=== PATIENT | male | born 1970 | race Caucasian/White ===

== ENCOUNTER 2017-08-16 13:56 | Emergency (ER) | payer BC ==
[2017-08-16 15:12] VITALS: BP 155/80
--- OUTSIDE RECORDS SUMMARY | 2017-08-16 15:37 | XMS REPORT ---
:1970 External Reference #:[id number] Author Organization [facility] 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 Active Onset: 12/21/2011 Benign essential hypertension Leif Rascon M.D. Active Onset: 12/21/2011 Mixed hyperlipidemia Leif Rascon M.D. Active Onset: 12/21/2011 Malaise and fatigue Leif Rascon M.D. Active Onset: 12/21/2011 Tobacco user Leif Rascon M.D. Active Onset: 12/21/2011 Morbid obesity DENITA Forde Active Onset: 01/14/2013 Osteoarthritis Leif Rascon M.D. Active Onset: 01/14/2013 Peptic reflux disease Leif Rascon M.D. Active Onset: 01/14/2013 Type II diabetes mellitus uncontrolled Leif Rascon M.D. Active Onset: 12/12/2013 Chronic obstructive lung disease Leif Rascon M.D. Active Onset: 12/29/2013 Allergic rhinitis Leif Rascon M.D. 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 Family History Date Family Member(s) Problem(s) Comments Father due to At age 64 () Father Brain cancer Father due to Brain cancer () Father Lung Cancer Father Diabetes Father Heart Attack several Mother Fibromyalgia Mother 72 Children 3 Siblings 3 Social History Type Date Description Comments Marital Status Legal Status: ETOH Use Occasionally consumes alcohol Smoking Patient is a former smoker 12/13/16----BUT ACTUALLY RESTARTED, AND IS DOWN TO APPROX 6 CIG A DAY Daily Caffeine Consumes on average 2 sodas per day Daily Caffeine Consumes on average 1 cup of regular coffee per day Allergies, Adverse Reactions, Alerts Date Description Reaction Status Severity Comments 12/19/2011 NKDA active Medications Medication Date Status Form Strength Qnty SIG Indications Ordering Provider Bacitracin-Neomyc 07/22/ Active Ointment 400-5-5000 45gm Apply To J34.81 [facility] in-Polymyxin 2016 Nasal Leif Golden Lesion M.DTeri tid Cephalexin 07/22/ Active Tablets 500mg 30tab tab one J34.81 Abiodun, 2016 s by mouth Leif Golden, three M.D. times a day Chantix 07/06/ Active Tablets 1mg 60tab 1 by F17.210 Abiodun, 2016 s mouth Leif Golden, twice a M.D. day Alprazolam 07/06/ Active Tablets 0.25mg 30tab one tab q G47.00 Abiodun, 2017 s hs Leif Golden M.D. Sumatriptan 07/06/ Active Tablets 100mg 9tabs take one G43.119 Abiodun, Succinate 2016 tablet by Leif Golden mouth M.DTeri every day as needed Clopidogrel 08/02/ Active Tablets 75mg 90tab 1 by I25.10 [facility], Bisulfate 2013 s mouth Leif Golden, every day M.D. Glucophage XR 04/27/ Active Tablets ER 500mg 90tab take one E11.9 Abiodun , 2013 24HR s tablet by Leif Golden, mouth M.D. every day Toprol XL 12/18/ Active Tablets ER 100mg 90tab 1 by I10 Abiodun, 2011 24HR s mouth Ahmafroylan M., every day M.D. Lotrel 12/18/ Active Capsules 10-40mg 90cap 1 by I10 Abiodun, 2011 s mouth Leif M., every day M.D. Lipitor 12/18/ Active Tablets 40mg 90tab 1 by E78.2 Abiodun, 2011 s mouth Ahmafroylan M., every day M.D. Aspirin 12/18/ Active Tablets 325mg 1 by I10 Abiodun, 2011 mouth Maycolmaforylan M., every day M.D. Benzonatate 04/14/ Hx Capsules 200mg 60cap tab one R05 Abiodun, 2017 - s by mouth Leif Golden, 04/20/ three M.D. 2017 times a day Gentamicin 10/08/ Hx Solution 0.3% 10cc 2 drops H10.9 Abiodun, Sulfate 2017 - both eyes Ahdemar Golden, 10/13/ three M.D. 2017 times a day for 5-7 days Nerve Conduction 01/10/ Hx r/O CTS , 369.9 [facility], Study B/L Hands 2014 - numbness Ahdemar Golden, 01/22/ M.D. 2015 Chantix 01/10/ Hx Tablets 1mg 60tab 1 by 305.1 Abiodun, 2014 - s mouth Leif Golden, 04/11/ twice a M.D. 2014 day Cyclobenzaprine 08/02/ Hx Tablets 5mg 120ta take 1-2 M54.5 Anand, STERLING 2013 - bs tablets Kaylan, 10/08/ by mouth RECRUITMENT MANAGER 2016 every 8 hours as needed for pain M54.2 Tramadol HCL 08/02/2014 - Hx Tablets 50mg 50tabs 1 by mouth M54.5 Anand , 10/08/2016 three times Kaylan, RECRUITMENT MANAGER a day as needed for pain M54.2 Terbinafine HCL 08/02/2014 - Hx Tablets 250mg 42tabs take 1 681.02 Anand 12/20/2014 tablet by Kaylan, mouth RECRUITMENT MANAGER once daily for 6 weeks Contour Next Ez 03/07/2014 - Hx 100units fs q ac E11.65 Abiodun, Ahmad Glucometer 10/08/2016 and aurelio Golden M.D. Strips prn Lancets 03/07/2014 - Hx 1Box fs q ac E11.65 Abiodun, Ahmad 10/08/2016 and aurelio Golden M.D. Metformin HCL 02/27/2014 - Hx Tablets ER 500mg 30tabs 1 by 250.02 Abiodun , Ahmad ER 04/27/2014 24HR mouth Shelley Golden every day Prednisone 12/29/2013 - Hx Tablets 20mg 24tabs 3 tab by 724.2 Abiodun, Ahmad 12/29/2013 mouth Shelley Golden every day for 4 days 846.0 Cephalexin 12/12/2013 - Hx Capsules 500mg 30caps 1 by mouth 682.0 Abiodun , 12/22/2013 three Leif Golden, times a M.DTeri day Gentamicin 11/30/2013 - Hx Ointment 0.3% 3.500gm apply 1/2 372.00 Abiodun , Sulfate 12/07/2013 inch tid Leif Golden, to R eye MSaira x7 days Levofloxacin 11/21/2013 - Hx Tablets 500mg 10tabs 1 po qd 466.0 Abiodun, 12/01/2013 Leif Golden M.D. 461.9 Prednisone 11/21/2013 - Hx Tablets 20mg 20tabs 2 tab by mouth daily 4 466.0 Abiodun, 12/05/2013 days, 30 Ahmad [id number] Shelley Golden Mucinex 11/21/2013 - Hx Tablets 1200mg 30tabs 1 po bid 466.0 Abiodun, Maximum 11/25/2013 ER 12HR Leif Golden M.D. Proair HFA 11/21/2013 - Hx Aerosol 108(90 2units 1-2 puffs q4-6 hours R06.02 Abiodun, 10/08/2016 Base) prn for sob Leif mortensen/leilani Miller M.D. J44.9 Betamethasone 11/21/2013 - Hx Cream 0.05% 45gm apply to L40.9 Abiodun, Dipropionate 10/08/2016 affected Leif Golden, areas bid Jl.Jamia L03.818 Azithromycin 04/15/2013 - Hx Tablets 250mg 1Pack 2 po today 466.0 Abiodun , 04/20/2013 then 1 po Leif Golden, next 4 days M.D. Methylprednisolone 04/15/2013 - Hx Tablets 4mg 1Pack take as 466.0 Abiodun, Dose Pack 04/21/2013 directed Leif Golden M.D. Benzonatate 04/15/2013 - Hx Capsules 100mg 30caps 1 capsule 466.0 Abiodun , 11/12/2013 po tid prn Leif Golden for cough Shelley 786.2 Chantix 02/02/2013 - Hx Tablets 1mg 60tabs take one 305.1 AbiodunLeif adams 03/14/2014 tablet by Shelley Golden mouth twice a day Indocin 01/14/2013 - Hx Suppository 50mg 90units 1 by mouth 729.4 AbiodunLeif pan 11/12/2013 three times a M.Shelley day as needed 719.47 Chantix Starting 11/24/2012 - Hx Tablets 0.5mg X 1tabs every day 305.1 [facility], [facility] 02/02/2013 11 & Leif Golden, 1 mg X 42 M.D. Chantix Starting 12/19/2011 - Hx Tablets 0.5mg X 1tabs every day [facility] , [facility] 11/24/2012 11 & Leif Golden, 1 mg X M.D. Protonix 12/19/2011 - Hx Tablets DR 40mg 30tabs 1 by Abiodun, 11/12/2013 mouth Leif Golden, every day M.DTeri Plavix 12/19/2011 - Hx Tablets 75mg 30tabs 1 by Abiodun, 11/12/2013 mouth Leif Golden, every day M.D. Isosorbide 12/19/2011 - Hx Tablets ER 30mg 1 every [facility], Mononitrate ER 11/12/2013 24HR day Leif Golden M.D. Medications Administered in Office Medication Date Status Form Strength Qnty SIG Indications Ordering Provider Injection Administered Injection Juan Ramon Rascon 10MG 004 Leif Golden M.D. Vital Signs Date Vital Result Comment 07/22/2017 BP Systolic 160 mmHg BP Diastolic 90 mmHg Height 69 inches 5'9" Weight 266.00 lb BMI (Body Mass Index) 39.3 kg/m2 Heart Rate 64 /min Respiratory Rate 16 /min 07/06/2017 BP Systolic 144 mmHg BP Diastolic 82 mmHg Height 69 inches 5'9" Weight 264.00 lb BMI (Body Mass Index) 39.0 kg/m2 Heart Rate 53 /min Respiratory Rate 18 /min 04/20/2017 BP Systolic 128 mmHg BP Diastolic 72 mmHg Height 69 inches 5'9" Weight 263.00 lb BMI (Body Mass Index) 38.8 kg/m2 Heart Rate 74 /min Body Temperature 98.3 F Respiratory Rate 16 /min 04/14/2017 BP Systolic 134 mmHg BP Diastolic 88 mmHg Height 69 inches 5'9" Weight 265.00 lb BMI (Body Mass Index) 39.1 kg/m2 Heart Rate 87 /min Body Temperature 99.1 F Respiratory Rate 18 /min 10/08/2016 BP Systolic 158 mmHg BP Diastolic 90 mmHg Height 69 inches 5'9" Weight 260.00 lb BMI (Body Mass Index) 38.4 kg/m2 Heart Rate 99 /min Respiratory Rate 18 /min 01/10/2015 BP Systolic 144 mmHg BP Diastolic 89 mmHg Height 69 inches 5'9" Weight 258.00 lb BMI (Body Mass Index) 38.1 kg/m2 Heart Rate 75 /min Respiratory Rate 16 /min 08/02/2014 BP Systolic 140 mmHg BP Diastolic 80 mmHg Height 69 inches 5'9" Weight 242.00 lb BMI (Body Mass Index) 35.7 kg/m2 Heart Rate 68 /min 04/06/2014 BP Systolic 121 mmHg BP Diastolic 75 mmHg Height 69 inches 5'9" Weight 275.00 lb BMI (Body Mass Index) 40.6 kg/m2 Heart Rate 51 /min Respiratory Rate 20 /min 03/30/2014 BP Systolic 113 mmHg BP Diastolic 72 mmHg Height 69 inches 5'9" Weight 276.00 lb BMI (Body Mass Index) 40.8 kg/m2 Heart Rate 56 /min Respiratory Rate 20 /min 03/07/2014 BP Systolic 135 mmHg BP Diastolic 97 mmHg Height 69 inches 5'9" Weight 287.00 lb BMI (Body Mass Index) 42.4 kg/m2 Heart Rate 59 /min Respiratory Rate 18 /min 02/27/2014 BP Systolic 129 mmHg BP Diastolic 84 mmHg Height 69 inches 5'9" Weight 286.00 lb BMI (Body Mass Index) 42.2 kg/m2 Heart Rate 68 /min Respiratory Rate 20 /min 12/29/2013 BP Systolic 144 mmHg BP Diastolic 95 mmHg Height 69 inches 5'9" Weight 288.00 lb BMI (Body Mass Index) 42.5 kg/m2 Heart Rate 63 /min Respiratory Rate 18 /min 12/12/2013 BP Systolic 157 mmHg BP Diastolic 110 mmHg Height 69 inches 5'9" Weight 281.00 lb BMI (Body Mass Index) 41.5 kg/m2 Heart Rate 64 /min Body Temperature 96.9 F Respiratory Rate 18 /min 11/30/2013 BP Systolic 138 mmHg BP Diastolic 88 mmHg Height 69 inches 5'9" Weight 291.00 lb BMI (Body Mass Index) 43.0 kg/m2 Heart Rate 81 /min Body Temperature 97.9 F Respiratory Rate 20 /min 11/21/2013 BP Systolic 158 mmHg BP Diastolic 94 mmHg BP Systolic Recheck 154 mmHg Manual Recheck BP Diastolic Recheck 92 mmHg Manual Recheck Height 69 inches 5'9" Weight 291.00 lb BMI (Body Mass Index) 43.0 kg/m2 Heart Rate 84 /min Body Temperature 98.0 F Respiratory Rate 22 /min 04/15/2013 BP Systolic 122 mmHg BP Diastolic 88 mmHg Height 69 inches 5'9" Weight 276.00 lb BMI (Body Mass Index) 40.8 kg/m2 Heart Rate 81 /min Body Temperature 97.6 F Respiratory Rate 20 /min 01/14/2013 BP Systolic 148 mmHg BP Diastolic 94 mmHg Height 69 inches 5'9" Weight 283.00 lb BMI (Body Mass Index) 41.8 kg/m2 Heart Rate 75 /min Respiratory Rate 24 /min 11/24/2012 BP Systolic 130 mmHg BP Diastolic 94 mmHg Height 69 inches 5'9" Weight 276.00 lb BMI (Body Mass Index) 40.8 kg/m2 Heart Rate 68 /min Body Temperature 98.2 F Respiratory Rate 18 /min Results Test Date Test Result H/L Range Note Laboratory test 10/08/2016 Hemoglobin A1c (Glyco <pending> finding HGB) TSH (Thyroid Stim Horm) <pending> CBC W/Automated Diff 01/10/2015 White Blood Count 6.8 K/uL 3.4-10.5 Red Blood Count 5.47 M/uL 4.20-5.80 Hemoglobin 16.1 gm/dL 12.8-17.0 Hematocrit 48.0 % 38.0-48.0 Mean Cell Volume 87.8 fl 80.0-96.0 Mean Corpuscular HGB 29.4 pg 27.0-33.0 Mean Corpuscular HGB Conc 33.5 g/dL 31.7-36.0 Platelet Count 308 K/uL 150-400 Red Cell Distri Width SD 45.9 fl 36-51 Red Cell Distri Width %CV 14.4 % 11.6-15.8 Mean Platelet Volume 10.5 fL 6.6-10.6 Neut% 47.4 % 33.0-73.0 Lymph % 43.3 % 17.0-56.0 Jerauld % 7.3 % 0.0-10.0 Eo% 1.6 % 0.0-5.0 Bas% 0.4 % 0.1-1.0 Neut# 3.24 K/uL 1.8-7.0 Lymph # 2.96 K/uL 1.8-7.0 Jerauld # 0.50 K/uL 0.0-0.8 Eos # 0.11 K/uL 0.0-0.5 Baso # 0.03 K/uL Low 0.1-0.2 Microalbumin,Random Urine 01/10/2015 Microalbumin,Urine 6.1 mg/L < 20.0 Glycohemoglobin A1c 01/10/2015 Glycohemoglobin (A1c) 6.2 % 4.2-6.3 1 eAG 131 mg/dL Laboratory test finding 01/10/2015 Prostate Specific Antigen 0.38 ng/mL 2 TSH Reflex FT4 and/or FT3 0.56 uIU/mL 0.36-3.74 3 Uric Acid 8.5 mg/dL High 3.5-7.2 Vitamin D,25-Hydroxy 32.3 ng/mL 30.0-100.0 4 LDL Cholesterol Profile 01/10/2015 Cholesterol 210 mg/dL < 200 5 Triglycerides 309 mg/dL < 150 6 HDL Cholesterol 29 mg/dL > 40 7 LDL-Cholesterol 119 mg/dL < 100 8 Laboratory test finding 01/10/2015 C-Reactive Protein,Cardiac 4.78 mg/L & lt;3.0 Sedimentation Rate 2 mm/hr 0-15 Comprehensive Metabolic Panel 01/10/2015 Glucose 112 mg/dL High 74-106 BUN 22 mg/dL High 7-18 Creatinine 1.1 mg/dL 0.6-1.3 Glom Filtration Rate, Estimate >60 mL/min >60 If >60 mL/min >60 9 BUN/Creat 20.0 ratio Sodium 136 mmol/L 136-145 Potassium 5.4 mmol/L High 3.5-5.1 10 Chloride 103 mmol/L 98-107 Carbon Dioxide 24 mmol/L 21-32 Anion Gap 9 mEq/L 8-16 Calcium 9.5 mg/dL 8.5-10.1 Total Protein 8.0 g/dL 6.4-8.2 Albumin 4.6 g/dL 3.4-5.0 Globulin 3.4 g/dL 1.9-4.3 Alb/Glob 1.4 ratio Bilirubin,Total 0.3 mg/dL 0.2-1.0 Sgot/Ast 24 U/L 15-37 SGPT/Alt 40 U/L 12-78 Alkaline Phosphatase 94 U/L 45-117 CBC W/Automated Diff 08/02/2014 White Blood Count 7.3 K/uL 3.4-10.5 Red Blood Count 5.26 M/uL 4.20-5.80 Hemoglobin 15.6 gm/dL 12.8-17.0 Hematocrit 46.4 % 38.0-48.0 Mean Cell Volume 88.2 fl 80.0-96.0 Mean Corpuscular HGB 29.7 pg 27.0-33.0 Mean Corpuscular HGB Conc 33.6 g/dL 31.7-36.0 Platelet Count 303 K/uL 150-400 Red Cell Distri Width SD 45.0 fl 36-51 Red Cell Distri Width %CV 14.0 % 11.6-15.8 Mean Platelet Volume 10.3 fL 6.6-10.6 Neut% 56.2 % 33.0-73.0 Lymph % 33.5 % 17.0-56.0 Jerauld % 8.3 % 0.0-10.0 Eo% 1.7 % 0.0-5.0 Bas% 0.3 % 0.1-1.0 Neut# 4.09 K/uL 1.8-7.0 Lymph # 2.43 K/uL 1.2-4.0 Jerauld # 0.60 K/uL 0.0-0.6 Eos # 0.12 K/uL 0.0-0.5 Baso # 0.02 K/uL Low 0.1-0.2 Comprehensive Metabolic Panel 08/02/2014 Glucose 102 mg/dL 74-106 BUN 19 mg/dL High 7-18 Creatinine 0.9 mg/dL 0.6-1.3 Glom Filtration Rate, Estimate >60 mL/min >60 If >60 mL/min >60 11 BUN/Creat 21.1 ratio Sodium 138 mmol/L 136-145 Potassium 4.5 mmol/L 3.5-5.1 Chloride 107 mmol/L 98-107 Carbon Dioxide 23 mmol/L 21-32 Anion Gap 13 mEq/L 8-16 Calcium 9.8 mg/dL 8.5-10.1 Total Protein 7.7 g/dL 6.4-8.2 Albumin 4.4 g/dL 3.4-5.0 Globulin 3.3 g/dL 1.9-4.3 Alb/Glob 1.3 ratio Bilirubin,Total 0.4 mg/dL 0.2-1.0 Sgot/Ast 21 U/L 15-37 SGPT/Alt 39 U/L 12-78 Alkaline Phosphatase 97 U/L 45-117 LDL Cholesterol Profile 08/02/2014 Cholesterol 134 mg/dL < 200 12 Triglycerides 106 mg/dL < 150 13 HDL Cholesterol 34 mg/dL > 40 14 LDL-Cholesterol 79 mg/dL < 100 15 Glycohemoglobin A1c 08/02/2014 Glycohemoglobin (A1c) 5.8 % 4.2-6.3 16 eAG 120 mg/dL Basic Metabolic Panel 03/07/2014 Glucose 200 mg/dL High 76-115 BUN 14 mg/dL 5-23 Creatinine 0.9 mg/dL 0.5-1.4 Glom Filtration Rate, Estimate >60 mL/min >60 If >60 mL/min >60 17 BUN/Creat 15.5 ratio Sodium 138 mmol/L 136-145 Potassium 4.2 mmol/L 3.5-5.1 Chloride 106 mmol/L 98-107 Carbon Dioxide 23 mEq/L 18-29 Anion Gap 13 mEq/L 8-16 Calcium 9.8 mg/dL 8.5-10.1 Comprehensive Metabolic Panel 03/07/2014 Glucose 200 mg/dL High 76-115 BUN 14 mg/dL 5-23 Creatinine 0.9 mg/dL 0.5-1.4 Glom Filtration Rate, Estimate >60 mL/min >60 If >60 mL/min >60 18 BUN/Creat 15.5 ratio Sodium 138 mmol/L 136-145 Potassium 4.2 mmol/L 3.5-5.1 Chloride 106 mmol/L 98-107 Carbon Dioxide 23 mEq/L 18-29 Anion Gap 13 mEq/L 8-16 Calcium 9.8 mg/dL 8.5-10.1 Total Protein 7.7 g/dL 6.3-8.0 Albumin 4.3 g/dL 3.5-5.0 Globulin 3.4 g/dL 1.9-4.3 Alb/Glob 1.3 ratio Bilirubin,Total 0.3 mg/dL 0.2-1.2 Sgot/Ast 47 U/L High 16-40 SGPT/Alt 64 U/L 30-65 Alkaline Phosphatase 110 U/L 50-136 Microalbumin,Random Urine 02/27/2014 Microalbumin,Urine 19.3 mg/L High 0.0 -18.5 CBC W/Automated Diff 12/29/2013 White Blood Count 7.7 K/uL 3.4-10.5 Red Blood Count 5.23 M/uL 4.20-5.80 Hemoglobin 15.1 gm/dL 12.8-17.0 Hematocrit 44.2 % 38.0-48.0 Mean Cell Volume 84.5 fl 80.0-96.0 Mean Corpuscular HGB 28.9 pg 27.0-33.0 Mean Corpuscular HGB Conc 34.2 g/dL 31.7-36.0 Platelet Count 306 K/uL 150-400 Red Cell Distri Width SD 41.9 fl 36-51 Red Cell Distri Width %CV 13.6 % 11.6-15.8 Mean Platelet Volume 10.7 fL High 6.6-10.6 Neut% 53.7 % 33.0-73.0 Lymph % 38.0 % 17.0-56.0 Jerauld % 6.7 % 0.0-10.0 Eo% 1.3 % 0.0-5.0 Bas% 0.3 % 0.1-1.0 Neut# 4.15 K/uL 1.8-7.0 Lymph # 2.94 K/uL 1.2-4.0 Jerauld # 0.52 K/uL 0.0-0.6 Eos # 0.10 K/uL 0.0-0.5 Baso # 0.02 K/uL Low 0.1-0.2 Comprehensive Metabolic Panel 12/29/2013 Glucose 185 mg/dL High 76-115 BUN 14 mg/dL 5-23 Creatinine 0.8 mg/dL 0.5-1.4 Glom Filtration Rate, Estimate >60 mL/min >60 If >60 mL/min >60 19 BUN/Creat 17.5 ratio Sodium 137 mmol/L 136-145 Potassium 4.4 mmol/L 3.5-5.1 Chloride 105 mmol/L 98-107 Carbon Dioxide 22 mEq/L 18-29 Anion Gap 14 mEq/L 8-16 Calcium 9.3 mg/dL 8.5-10.1 Total Protein 7.6 g/dL 6.3-8.0 Albumin 4.2 g/dL 3.5-5.0 Globulin 3.4 g/dL 1.9-4.3 Alb/Glob 1.2 ratio Bilirubin,Total 0.3 mg/dL 0.2-1.2 Sgot/Ast 37 U/L 16-40 SGPT/Alt 68 U/L High 30-65 Alkaline Phosphatase 111 U/L 50-136 Laboratory test 12/29/2013 C-Reactive 7.60 mg/L High 0.00-3.00 20 finding Protein,Cardiac Sedimentation Rate 19 mm/hr High 0-15 Glycohemoglobin A1c 12/29/2013 Glycohemoglobin (A1c) 10.0 % High 4.8-6.0 21 eAG 240 mg/dL Laboratory test finding 12/29/2013 TSH Reflex FT4 and/or 1.46 uIU/mL 0.49 -4.67 22 FT3 Prostate Specific Antigen 0.46 ng/mL 0.00-4.00 23 LDL Cholesterol Profile 12/29/2013 Cholesterol 226 mg/dL High 120-200 Triglycerides 249 mg/dL High 16-231 HDL Cholesterol 32 mg/dL 29-83 LDL-Cholesterol 144 mg/dL 62-185 Glycohemoglobin A1c 11/24/2012 Glycohemoglobin (A1c) 6.4 % High 4.8-6.0 24 eAG 137 mg/dL Laboratory test finding 11/24/2012 NT-proBNP 17.0 pg/mL <325.0 CBC W/Automated Diff 11/24/2012 White Blood Count 7.0 K/uL 3.4-10.5 Red Blood Count 6.03 M/uL High 4.20-5.80 Hemoglobin 17.5 gm/dL High 12.8-17.0 Hematocrit 52.5 % High 38.0-48.0 Mean Cell Volume 87.1 fl 80.0-96.0 Mean Corpuscular HGB 29.0 pg 27.0-33.0 Mean Corpuscular HGB Conc 33.3 g/dL 31.7-36.0 Platelet Count 299 K/uL 150-400 Red Cell Distri Width SD 44.6 fl 36-51 Red Cell Distri Width %CV 14.1 % 11.6-15.8 Mean Platelet Volume 10.3 fL 6.6-10.6 Neut% 57.4 % 33.0-73.0 Lymph % 32.9 % 17.0-56.0 Jerauld % 7.1 % 0.0-10.0 Eo% 2.3 % 0.0-5.0 Bas% 0.3 % 0.1-1.0 Neut# 4.04 K/uL 1.8-7.0 Lymph # 2.31 K/uL 1.2-4.0 Jerauld # 0.50 K/uL 0.0-0.6 Eos # 0.16 K/uL 0.0-0.5 Baso # 0.02 K/uL Low 0.1-0.2 Laboratory test finding 11/24/2012 Thyroid Stim Hormone 0.83 uIU/mL 0.49- 4.67 LDL Cholesterol Profile 11/24/2012 Cholesterol 232 mg/dL High 120-200 Triglycerides 194 mg/dL 16-231 HDL Cholesterol 30 mg/dL 29-83 LDL-Cholesterol 163 mg/dL 62-185 Comprehensive Metabolic Panel 11/24/2012 Glucose 116 mg/dL High 76-115 BUN 19 mg/dL 5-23 Creatinine 1.0 mg/dL 0.5-1.4 Glom Filtration Rate, Estimate >60 mL/min >60 If >60 mL/min >60 25 BUN/Creat 19.0 ratio Sodium 139 mmol/L 136-145 Potassium 4.7 mmol/L 3.5-5.1 Chloride 106 mmol/L 98-107 Carbon Dioxide 23 mEq/L 18-29 Anion Gap 15 mEq/L 8-16 Calcium 10.1 mg/dL 8.5-10.1 Total Protein 8.2 g/dL High 6.3-8.0 Albumin 4.8 g/dL 3.5-5.0 Globulin 3.4 g/dL 1.9-4.3 Alb/Glob 1.4 ratio Bilirubin,Total 0.3 mg/dL 0.2-1.2 Sgot/Ast 30 U/L 16-40 SGPT/Alt 66 U/L High 30-65 Alkaline Phosphatase 113 U/L 50-136 Laboratory test finding 11/24/2012 CK 44 U/L 26-190 Troponin-I < 0.02 ng/mL 0.00-0.50 26 C-Reactive Protein,Cardiac 2.93 mg/L 0.00-3.00 27 1 Elevated levels of HbA1c suggest the need for more aggressive treatment of glycemia. The [place] [employer] recommends that a primary goal of therapy should be a HbA1c of <7% and that physicians should re-evaluate the treatment regimen in patients with HbA1c values consistently >8%. 2 THIS ASSAY IS NOT INTENDED A CANCER SCREENING TEST The concentration of PSA in a given specimen, determined with assays from different manufacturers, can vary due to differences in assay methods and reagent specificity. Values obtained from different assay methods cannot be used interchangeably. 3 QUERY: Reflex add FT3? N QUERY: Reflex add FT4? N 4 Vitamin D deficiency has been defined by the [place] [employer] and an Endocrine Society practice guideline as a level of serum 25-OH vitamin D less than 20 ng/mL (1,2). The Endocrine Society went on to further define vitamin D insufficiency as a level between 21 and 29 ng/mL (2). 1. IOM ([place] [employer]). 2010. Dietary reference intakes for calcium and D. [place]: The National Academies Press. 2. Lashawn MF, Froilan HERR, Nicole DELEON, et al. Evaluation, treatment, and prevention of vitamin D deficiency: an Endocrine Society clinical practice guideline. JCEM. 2010; 96(7):1911-30. Performed at: RN - [facility] [address] [id number] Superintendent Refuse Disposal: Judi Wade MD, Phone: [phone] 5 Reference Guidelines*: Desirable: ........... < 200 mg/dL Borderline High: ..... 200-239 mg/dL High: ................ >=240 mg/dL * The National Cholesterol Education Program (NCEP) 6 Reference Guidelines*: Normal: ............. < 150 mg/dL Borderline High: .... 150-199 mg/dL High: ............... 200-499 mg/dL Very High: .......... > 500 mg/dL * Source: National Cholesterol Education Program (NCEP) 7 Reference Guidelines*: Low HDL: ..... < 40 mg/dL Normal: ..... 40-60 mg/dL Desirable: ... > 60 mg/dL *The National Cholesterol Education Program(NCEP) 8 Reference Guidelines*: Optimal:........... <100 mg/dL Near Optimal....... 100-129 mg/dL Borderline High.... 130-159 mg/dL High............... 160-189 mg/dL Very High.......... >=190 mg/dL * Source: National Cholesterol Education Program (NCEP) 9 Note: Persistent reduction for 3 months or more in an eGFR <60 mL/min/1.73 m2 defines CKD. Patients with eGFR values >/=60 mL/min/1.73 m2 may also have CKD if evidence of persistent proteinuria is present. The original MDRD equation for estimated GFR is not valid for patients less than 18 years of age. Additional information may be found at www.kdoqi.org. 10 Specimen slightly Hemolyzed, interpret with caution 11 Note: Persistent reduction for 3 months or more in an eGFR <60 mL/min/1.73 m2 defines CKD. Patients with eGFR values >/=60 mL/min/1.73 m2 may also have CKD if evidence of persistent proteinuria is present. The original MDRD equation for estimated GFR is not valid for patients less than 18 years of age. Additional information may be found at www.kdoqi.org. 12 Reference Guidelines*: Desirable: ........... < 200 mg/dL Borderline High: ..... 200-239 mg/dL High: ................ >=240 mg/dL * The National Cholesterol Education Program (NCEP) 13 Reference Guidelines*: Normal: ............. < 150 mg/dL Borderline High: .... 150-199 mg/dL High: ............... 200-499 mg/dL Very High: .......... > 500 mg/dL * Source: National Cholesterol Education Program (NCEP) 14 Reference Guidelines*: Low HDL: ..... < 40 mg/dL Normal: ..... 40-60 mg/dL Desirable: ... > 60 mg/dL *The National Cholesterol Education Program(NCEP) 15 Reference Guidelines*: Optimal:........... <100 mg/dL Near Optimal....... 100-129 mg/dL Borderline High.... 130-159 mg/dL High............... 160-189 mg/dL Very High.......... >=190 mg/dL * Source: National Cholesterol Education Program (NCEP) 16 Elevated levels of HbA1c suggest the need for more aggressive treatment of glycemia. The [place] [employer] recommends that a primary goal of therapy should be a HbA1c of <7% and that physicians should re-evaluate the treatment regimen in patients with HbA1c values consistently >8%. 17 Note: Persistent reduction for 3 months or more in an eGFR <60 mL/min/1.73 m2 defines CKD. Patients with eGFR values >/=60 mL/min/1.73 m2 may also have CKD if evidence of persistent proteinuria is present. The original MDRD equation for estimated GFR is not valid for patients less than 18 years of age. Additional information may be found at www.kdoqi.org. 18 Note: Persistent reduction for 3 months or more in an eGFR <60 mL/min/1.73 m2 defines CKD. Patients with eGFR values >/=60 mL/min/1.73 m2 may also have CKD if evidence of persistent proteinuria is present. The original MDRD equation for estimated GFR is not valid for patients less than 18 years of age. Additional information may be found at [email or web address]. 19 Note: Persistent reduction for 3 months or more in an eGFR <60 mL/min/1.73 m2 defines CKD. Patients with eGFR values >/=60 mL/min/1.73 m2 may also have CKD if evidence of persistent proteinuria is present. The original MDRD equation for estimated GFR is not valid for patients less than 18 years of age. Additional information may be found at [email or web address]. 20 Relative Risk for Future Cardiovascular Event Low <1.00 Average 1.00 - 3.00 High >3.00 21 A1c value between 5.7% and 6.4% is considered at increased risk for diabetes. A1c value greater than 6.5 % is considered essentially diagnostic for Type II diabetes. Current guidelines recommend a treatment goal of <7% for diabetic patients. This method will measure glycosylated hemoglobin variants, HbS, HbG, HbH, HbWayne, HbC, HbE, etc. Other hemoglobin- opathies may give incorrect results with this test. 22 QUERY: Reflex add FT3? N QUERY: Reflex add FT4? Y 23 THIS ASSAY IS NOT INTENDED A CANCER SCREENING TEST The concentration of PSA in a given specimen, determined with assays from different manufacturers, can vary due to differences in assay methods and reagent specificity. Values obtained from different assay methods cannot be used interchangeably. 24 A1c value between 5.7% and 6.4% is considered at increased risk for diabetes. A1c value greater than 6.5 % is considered essentially diagnostic for Type II diabetes. Current guidelines recommend a treatment goal of <7% for diabetic patients. This method will measure glycosylated hemoglobin variants, HbS, HbG, HbH, HbWayne, HbC, HbE, etc. Other hemoglobin- opathies may give incorrect results with this test. 25 Note: Persistent reduction for 3 months or more in an eGFR <60 mL/min/1.73 m2 defines CKD. Patients with eGFR values >/=60 mL/min/1.73 m2 may also have CKD if evidence of persistent proteinuria is present. The original MDRD equation for estimated GFR is not valid for patients less than 18 years of age. Additional information may be found at [email or web address]. 26 0 - 0.5 ng/mL: No evidence of myocardial injury 0.6 - 1.4 ng/mL: Mild elevation, suggesting possible myocardial injury > 1.4 ng/mL: Consistent with myocardial injury 27 Relative Risk for Future Cardiovascular Event Low <1.00 Average 1.00 - 3.00 High >3.00 Procedures Date CPT Code Description Status 02/27/2014 76558 Visual Screening Test Completed 02/27/2014 38289 EKG Completed 02/27/2014 95959 Diagnostic Bekesy Audiometry Completed 11/21/2013 37478 Spirometry Completed 11/21/2013 79886 Tympanometry Completed 04/15/2013 11462 Spirometry Completed 11/24/2012 93899 EKG Completed 10/30/2010 26278 EKG Completed 12/24/2009 58615 EKG Completed 06/20/2008 66873 Spirometry Completed 06/20/2008 28747 Tympanometry Completed 04/04/2008 58781 Tympanometry Completed 11/20/2006 18284 EKG Completed 06/09/2005 Inj Trigger PNT Sing/Mult Inj, 1-2 Muscles Completed 05/22/2005 Inj. Therap, Carpal Tunnel Completed 05/30/2004 64418 EKG Completed 09/14/1984 Colonoscopy Completed Encounters Type Date Location Provider CPT E/M Dx Office Visit 07/22/2017 11:00a [facility] Chinedu Moy [facility] 95088 J34.81 G47.00 E78.2 I10 E11.9 Office Visit 07/06/2017 4:00p [facility] Chinedu Moy [facility] 60600 F17.210 G47.00 G43.119 Office Visit 04/20/2017 3:30p [facility] Chinedu Moy [facility] 51597 R05 R06.2 R06.02 J06.9 Office Visit 04/14/2017 10:15a [facility] Chinedu Moy [facility] 80953 R06.02 R06.2 R05 J30.1 I25.10 E78.2 I10 E11.9 Office Visit 10/08/2016 4:30p [facility] Chinedu Moy [facility] 20276 I25.10 E78.2 I10 E11.9 E66.01 R53.83 H10.9 Office Visit 01/10/2015 2:00p [facility] Leif Rascon M.D. 17349 414.01 272.2 401.1 250.00 278.01 780.79 715.90 496 477.8 300.00 780.52 305.1 691.8 369.9 354.0 724.2 723.1 Office Visit 08/02/2014 11:00a [facility] Kaylan Michel [facility] 24707 681.02 724.2 847.2 847.0 414.01 272.2 401.1 250.00 Office Visit 04/06/2014 2:30p [facility] Leif Rascon M.D. 78925 414.01 272.2 401.1 278.01 780.79 V85.41 715.90 496 477.8 724.2 300.00 780.52 305.1 Office Visit 03/30/2014 2:45p [facility] Leif Rascon M.D. 50475 305.1 414.01 272.2 401.1 278.01 780.79 V85.41 715.90 496 477.8 724.2 691.8 Office Visit 03/07/2014 9:00a [facility] Leif Rascon M.D. 40889 305.1 786.2 786.05 414.01 272.2 401.1 278.01 780.79 V85.41 715.90 250.02 496 477.8 724.2 369.9 691.8 Office Visit 02/27/2014 11:45a [facility] Leif Rascno M.D. 38513 305.1 786.2 786.05 414.01 272.2 401.1 278.01 780.79 V85.41 715.90 250.02 496 477.8 724.2 369.9 691.8 V70.0 Office Visit 12/29/2013 11:45a [facility] Leif Rascon M.D. 39586 682.0 682.8 305.1 786.2 786.05 478.19 414.01 272.2 401.1 278.01 780.79 V85.41 715.90 250.02 496 477.8 724.2 846.0 Office Visit 12/12/2013 11:30a [facility] Leif Rascon M.D. 72903 682.0 682.8 305.1 786.2 786.05 478.19 414.01 272.2 401.1 278.01 780.79 V85.41 715.90 250.02 496 Office Visit 11/30/2013 2:00p [place] [address] 372.00 373.11 787.01 786.2 466.0 305.1 786.05 461.9 478.19 Office Visit 11/21/2013 11:15a [place] [address] 786.2 466.0 786.05 461.9 388.70 305.1 478.19 787.91 110.4 696.1 Office Visit 04/15/2013 1:45p [place] [address] 786.2 466.0 305.1 Office Visit 01/14/2013 12:00p [facility] Leif Rascon M.D. 03669 729.4 719.47 715.90 278.01 305.1 Office Visit 11/24/2012 11:30a [facility] Chinedu Moy [facility] 81509 414.01 401.1 272.2 305.1 278.01 719.47 110.1 Office Visit 10/23/2011 4:30p [facility] Leif Rascon M.D. 07146 414.01 401.1 272.2 719.46 Office Visit 02/11/2011 9:45a [facility] Leif Rascon M.D. 69715 414.01 786.59 780.79 682.2 Office Visit 12/17/2010 2:45p [facility] Leif Rascon M.D. 03852 414.01 401.1 272.2 786.59 Office Visit 01/07/2010 10:45a [facility] Leif Rascon M.D. 68500 414.01 401.1 272.2 786.59 Office Visit 12/24/2009 11:45a [facility] Leif Rascon M.D. 55336 414.01 796.2 401.1 786.59 Office Visit 08/20/2009 10:45a [facility] Leif Rascon M.D. 65448 414.01 796.2 305.1 Office Visit 06/04/2009 12:15p [facility] Leif Rascon M.D. 22787 414.01 401.1 272.2 847.0 Office Visit 03/01/2009 10:15a [facility] Leif Rascon M.D. 16749 414.01 401.1 250.02 305.1 Plan of Care 07/22/2017 - Chinedu Moy FNPJ34.81 Nasal mucositis (ulcerative)New Medication: Vciqcrtudu-Qorrvuao-Dzflgvgmo [id number] 500 mgComments:LYJOAA94.00 Insomnia, unspecifiedComments:STRESS FREE ENVIRONMENT FOR SLEEP; NO LIGHTS; NO TV CONTINUE MEDSE78.2 Mixed hyperlipidemiaComments:CONTINUE MEDICATION DIET COUNSELING WITH [id number] Essential (primary) hypertensionComments:CHECK BP TIW COUNSELING ON DX AND CORRECTION CARE AND COMPLICATIONS CONT MEDSE11.9 Type 2 diabetes mellitus without complicationsComments:DIET REVIEWED WITH HANDOUT
--- NOTE | 2017-08-16 15:41 | UC ---
Skin Complaint HPI - HPI Summary HPI Summary: Awoke with upper lip swelling. No known trauma. No new medications. Finished Cephalexin last week. Some pain and tenderness. - History of Current Complaint Chief Complaint: UCSkin Time Seen by Provider: 08/16/17 15:28 Stated Complaint: SWOLLEN LIP Hx Obtained From: Patient Onset/Duration: Sudden Onset - this morning., Still Present Timing: Constant Onset Severity: Moderate Current Severity: Moderate Location: Discrete - right upper lateral lip. Character: Swelling, Pain Aggravating Factor(s): Touch Alleviating Factor(s): Nothing Associated Signs & Symptoms: Negative: Diaphoresis, Fever, Chills, Hoarseness, Throat Tightening, Rash, Drainage - Allergy/Home Medications Allergies/Adverse Reactions: Allergies Allergy/AdvReac Type Severity Reaction Status Date / Time No Known Allergies Allergy Verified 08/16/17 15:12 Home Medications: Home Medications metFORMIN* [Glucophage 500 MG TAB *] 500 mg PO DAILY 08/16/17 [History Confirmed 08/16/17] Review of Systems Skin: Other - swelling of the right upper lip. Is Patient Immunocompromised?: No All Other Systems Reviewed And Are Negative: Yes PMH/Surg Hx/FS Hx/Imm Hx Endocrine History: Diabetes Cardiovascular History: Cardiac Disease, Hypertension - Surgical History Surgical History: Yes Surgery Procedure, Year, and Place: Coronary Artery Stents: 2 in 2002, 2 in 2010 - Family History Known Family History: Positive: Cardiac Disease, Hypertension, Diabetes - Social History Occupation: Employed Full-time Lives: With Family Alcohol Use: None Substance Use Type: None Smoking Status (MU): Former Smoker Type: Cigarettes Amount Used/How Often: 1 1/2 PPD Length of Time of Smoking/Using Tobacco: 30 Years Have You Smoked in the Last Year: Yes When Did the Patient Quit Smoking/Using Tobacco: ~01/08/14 Physical Exam Triage Information Reviewed: Yes Appearance: Well-Appearing, No Pain Distress, Obese Vital Signs: Initial Vital Signs Temp 97.5 F 08/16/17 15:07 Pulse 62 08/16/17 15:07 Resp 18 08/16/17 15:07 BP 155/80 08/16/17 15:07 Pulse Ox 100 08/16/17 15:07 Vital Signs Reviewed: Yes Eyes: Positive: Conjunctiva Clear ENT: Positive: Pharynx normal, TMs normal, Other - Right upper lip swollen, red , tender with small punctum Neck exam: Normal Respiratory Exam: Normal Cardiovascular Exam: Normal Musculoskeletal Exam: Normal Neurological Exam: Normal Psychological Exam: Normal Skin: Positive: significant lesion(s) - right upper lip abscess Course/Dx - Differential Diagnoses - Skin Complaint Differential Diagnoses: Abscess, Allergic Reaction, Angioedema, Cellulitis - Diagnoses Provider Diagnoses: Abscess on the right upper lip Discharge - Discharge Plan Condition: Stable Disposition: HOME Prescriptions: Amoxicillin/Clavulanate TAB* [Augmentin TAB 875*] 875 mg PO BID #14 tab Patient Education Materials: Abscess (ED), Amoxicillin/Clavulanate Potassium ( By mouth) Referrals: Leif Rascon MD [Primary Care Provider] - Additional Instructions: If you get diarrhea with the augmentin, take an imodium with each antibiotic dose to prevent the diarrhea.
== END 2017-08-16 16:18 | disposition home or self-care (01) ==
LOC: UCCORT 13:56
DX: K13.0 Diseases of lips (principal); E11.9 Type 2 diabetes mellitus without complications; Z79.84 Long term (current) use of oral hypoglycemic drugs; I10 Essential (primary) hypertension; I51.9 Heart disease, unspecified; Z95.5 Presence of coronary angioplasty implant and graft; E66.9 Obesity, unspecified; Z87.891 Personal history of nicotine dependence
CPT/HCPCS: 99202; G0463

== ENCOUNTER 2017-11-04 20:55 | Observation (INO) | payer BC ==
[2017-11-04] MEDS ORDERED: Nitroglycerin 2% OINT* 1 GM PAK TOPICAL ONE (21:02)
[2017-11-04] MEDS ORDERED: Nitroglycerin TAB 0.4 MG* 0.4 MG TAB SL ONE (21:02)
[2017-11-04] MEDS ORDERED: Labetalol IV* 5 MG/ML 20 ML VIAL IV PUSH ONE (21:02)
[2017-11-04] MEDS ORDERED: Aspirin Low Dose CHEW TAB* 81 MG PO ONE (21:03)
--- NOTE | 2017-11-04 21:28 | RAD ---
INDICATION: Chest pain COMPARISON: December 01, 2013 TECHNIQUE: An AP portable view obtained at 2112 hours is submitted. FINDINGS: Bones/Soft Tissues: There are no acute bony findings. Cardiomediastinal: The cardiomediastinal silhouette is mildly prominent. Lungs: There are no infiltrates. Pleura: There are no pleural effusions. Other: None IMPRESSION: MILDLY PROMINENT CARDIAC SILHOUETTE. LUNGS CLEAR.
[2017-11-04 21:42] LABS: ABS Basophils 0 10^3/ul (0-0.2); ABS Eosinophils 0 10^3/ul (0-0.6); ABS Lymphocytes 1.5 10^3/ul (1.0-4.8); ABS Monocytes 0.6 10^3/ul (0-0.8); ABS Neutrophils 4.5 10^3/ul (1.5-7.7); ABS Nucleated RBC 0 10^3/ul; Eosinophil % 0.3 % (0-6); Hematocrit 46 % (42-52); Hemoglobin 15.5 g/dl (14.0-18.0); Lymphocyte % 22.9 % (25-47); Mean Corpuscular HGB Conc 34 g/dl (31-36); Mean Corpuscular Hemoglobin 29 pg (27-31); Mean Corpuscular Volume 86 fL (80-94); Mean Platelet Volume 8 um3 (7.4-10.4); Nucleated Red Blood Cells % 0; Platelet Count 208 10^3/ul (150-450); Red Blood Count 5.35 10^6/ul (4.0-5.4); Red Cell Distribution Width 14 % (10.5-15); White Blood Count 6.6 10^3/ul (3.5-10.8)
[2017-11-04 21:47] LABS: INR 0.94 (0.77-1.02)
[2017-11-04 21:53] LABS: EGFR Non-African American 88.6 (>60)
[2017-11-04] MEDS ORDERED: Albuterol HFA INHALER* 8 gm MDI INH PRN (23:05)
[2017-11-04] MEDS ORDERED: NS 0.9% 1000 ML* 1,000 ML IV SCH (23:15)
[2017-11-04] MEDS ORDERED: Dextrose 50% Syringe 50 ML* 25 GM/50 ML SYRINGE IV PUSH PRN (23:15)
--- NOTE | 2017-11-05 00:55 | ED ---
Jourdan Rizzo Jennifer, scribed for Jose Forte MD on 11/04/17 at 2102 . HPI Chest Pain - HPI Summary HPI Summary: The patient is a 47 year old male who presents to the ED with chest pain for the past three days. The patient reports that he was in the bathroom at work today when he got foggyheaded and felt disoriented. His face became very red, and he felt pain in his left arm. The patient reports that he feels fine in the ED. - History of Current Complaint Hx Obtained From: Patient Onset/Duration: Started Days Ago - three Timing: Constant Initial Severity: Mild Current Severity: None Chest Pain Radiates: No Aggravating Factor(s): Nothing Alleviating Factor(s): Nothing Associated Signs and Symptoms: Positive: Other: - Foggy-headed, disoriented, red face, pain in left arm. - Allergy/Home Medications Allergies/Adverse Reactions: Allergies Allergy/AdvReac Type Severity Reaction Status Date / Time No Known Allergies Allergy Verified 11/04/17 21:05 PMH/Surg Hx/FS Hx/Imm Hx Endocrine/Hematology History: Reports: Hx Diabetes Cardiovascular History: Reports: Hx Hypertension - Surgical History Surgery Procedure, Year, and Place: Coronary Artery Stents: 2 in 2002, 2 in 2010 - Immunization History Date of Tetanus Vaccine: Unk Date of Influenza Vaccine: Fall 2012 - Family History Known Family History: Positive: Cardiac Disease, Hypertension, Diabetes - Social History Alcohol Use: None Substance Use Type: Reports: None Hx Tobacco Use: Yes Smoking Status (MU): Former Smoker - Quit three months ago Type: Cigarettes Amount Used/How Often: 1 1/2 PPD Length of Time of Smoking/Using Tobacco: 30 Years Have You Smoked in the Last Year: Yes Review of Systems Positive: Chest Pain Positive: Myalgia - pain in left arm Neurological: Other - Foggy-headed, disoriented All Other Systems Reviewed And Are Negative: Yes Physical Exam - Summary Physical Exam Summary: Appearance: Well appearing, no pain distress Skin: warm, dry, reflects adequate perfusion Head/face: normal Eyes: EOMI, MONICA ENT: normal Neck: supple, non-tender Respiratory: CTA, breath sounds present Cardiovascular: RRR, pulses symmetrical Abdomen: non-tender, soft Bowel: present Musculoskeletal: normal, strength/ROM intact. Extremities: Fungal changes to nails of right hand. Neuro: normal, sensory motor intact, A&Ox3 Triage Information Reviewed: Yes Vital Signs On Initial Exam: Initial Vitals Temp Pulse Resp BP Pulse Ox 37.1 C 66 16 187/101 99 11/04/17 20:55 11/04/17 20:55 11/04/17 20:55 11/04/17 20:55 11/04/17 20:55 Vital Signs Reviewed: Yes Diagnostics - Vital Signs Vital Signs Temp Pulse Resp BP Pulse Ox 11/05/17 00:01 69 17 110/59 96 11/05/17 00:00 68 19 96 11/04/17 23:30 62 20 121/61 96 11/04/17 23:01 66 26 128/68 95 11/04/17 23:00 60 18 98 11/04/17 22:54 60 20 98 11/04/17 22:30 56 18 125/68 98 11/04/17 22:00 62 15 116/65 98 11/04/17 21:45 59 16 131/72 98 11/04/17 21:30 65 14 130/63 97 11/04/17 21:05 68 21 97 11/04/17 21:04 169/88 11/04/17 20:55 37.1 C 66 16 187/101 99 - Laboratory Lab Results: Lab Results 11/04/17 11/04/17 11/04/17 Range/Units 21:26 21:26 21:26 WBC 6.6 (3.5-10.8) 10^3/ul RBC 5.35 (4.0-5.4) 10^6/ul Hgb 15.5 (14.0-18.0) g/dl Hct 46 (42-52) % MCV 86 (80-94) fL MCH 29 (27-31) pg MCHC 34 (31-36) g/dl RDW 14 (10.5-15) % Plt Count 208 (150-450) 10^3/ul MPV 8 (7.4-10.4) um3 Neut % (Auto) 68.0 (38-83) % Lymph % (Auto) 22.9 L (25-47) % [place] % (Auto) 8.3 (1-9) % Eos % (Auto) 0.3 (0-6) % Baso % (Auto) 0.5 (0-2) % Absolute Neuts (auto) 4.5 (1.5-7.7) 10^3/ul Absolute Lymphs (auto) 1.5 (1.0-4.8) 10^3/ul Absolute Monos (auto) 0.6 (0-0.8) 10^3/ul Absolute Eos (auto) 0 (0-0.6) 10^3/ul Absolute Basos (auto) 0 (0-0.2) 10^3/ul Absolute Nucleated RBC 0 10^3/ul Nucleated RBC % 0 INR (Anticoag Therapy) 0.94 (0.77-1.02) APTT 37.9 H (26.0-36.3) seconds D-Dimer, Quantitative < 200 (Less Than 230) ng/mL Sodium (133-145) mmol/L Potassium (3.5-5.0) mmol/L Chloride (101-111) mmol/L Carbon Dioxide (22-32) mmol/L Anion Gap (2-11) mmol/L BUN (6-24) mg/dL Creatinine (0.67-1.17) mg/dL Est GFR ( Amer) (>60) Est GFR (Non-Af Amer) (>60) BUN/Creatinine Ratio (8-20) Glucose (70-100) mg/dL Lactic Acid (0.5-2.0) mmol/L Calcium (8.6-10.3) mg/dL Total Bilirubin (0.2-1.0) mg/dL AST (13-39) U/L ALT (7-52) U/L Alkaline Phosphatase (34-104) U/L Troponin I (<0.04) ng/mL B-Natriuretic Peptide 20 ( - 100) pg/mL Total Protein (6.4-8.9) g/dL Albumin (3.2-5.2) g/dL Globulin (2-4) g/dL Albumin/Globulin Ratio (1-3) 11/04/17 11/04/17 Range/Units 21:26 21:26 WBC (3.5-10.8) 10^3/ul RBC (4.0-5.4) 10^6/ul Hgb (14.0-18.0) g/dl Hct (42-52) % MCV (80-94) fL MCH (27-31) pg MCHC (31-36) g/dl RDW (10.5-15) % Plt Count (150-450) 10^3/ul MPV (7.4-10.4) um3 Neut % (Auto) (38-83) % Lymph % (Auto) (25-47) % [place]ford % (Auto) (1-9) % Eos % (Auto) (0-6) % Baso % (Auto) (0-2) % Absolute Neuts (auto) (1.5-7.7) 10^3/ul Absolute Lymphs (auto) (1.0-4.8) 10^3/ul Absolute Monos (auto) (0-0.8) 10^3/ul Absolute Eos (auto) (0-0.6) 10^3/ul Absolute Basos (auto) (0-0.2) 10^3/ul Absolute Nucleated RBC 10^3/ul Nucleated RBC % INR (Anticoag Therapy) (0.77-1.02) APTT (26.0-36.3) seconds D-Dimer, Quantitative (Less Than 230) ng/mL Sodium 138 (133-145) mmol/L Potassium 4.0 (3.5-5.0) mmol/L Chloride 101 (101-111) mmol/L Carbon Dioxide 27 (22-32) mmol/L Anion Gap 10 (2-11) mmol/L BUN 15 (6-24) mg/dL Creatinine 0.91 (0.67-1.17) mg/dL Est GFR ( Amer) 113.9 (>60) Est GFR (Non-Af Amer) 88.6 (>60) BUN/Creatinine Ratio 16.5 (8-20) Glucose 120 H (70-100) mg/dL Lactic Acid 1.9 (0.5-2.0) mmol/L Calcium 11.2 H (8.6-10.3) mg/dL Total Bilirubin 0.50 (0.2-1.0) mg/dL AST 44 H (13-39) U/L ALT 54 H (7-52) U/L Alkaline Phosphatase 85 (34-104) U/L Troponin I 0.00 (<0.04) ng/mL B-Natriuretic Peptide ( - 100) pg/mL Total Protein 8.2 (6.4-8.9) g/dL Albumin 4.9 (3.2-5.2) g/dL Globulin 3.3 (2-4) g/dL Albumin/Globulin Ratio 1.5 (1-3) Result Diagrams: 11/04/17 21:26 11/04/17 21:26 Lab Statement: Any lab studies that have been ordered have been reviewed, and results considered in the medical decision making process. - Radiology CXR Xray Interpretation: No Acute Changes - MILDLY PROMINENT CARDIAC SILHOUETTE. LUNGS CLEAR. Dr. Forte has reviewed this report. Radiology Interpretation Completed By: Radiologist - EKG 20:50 Cardiac Rate: NL EKG Rhythm: Sinus Rhythm - [address] Segment: Non-Specific EKG Interpretation: Normal [place], RBBB Re-Evaluation - Re-Evaluation First Eval Re-Evaluation Time: 22:23 Change: Improved Comment: Blood pressure normalized with treatment. Chest Pain Course/Dx - Course Course Of Treatment: Pt with HEART score of 4 with pain suspicious of angina. Initial trop and ST segments neg. BP controlled with Nitro. HR ~60. Admitted for further eval/tx. - Chest Pain Differential Diagnosis/HQI/PQRI: Acute CA, ACS, Angina, Aortic Aneurysm, CHF, Chest Wall, GI Disease, Lower Respiratory Infection, Pulmonary Edema, Pulmonary Embolism - Diagnoses Provider Diagnoses: Chest pain, Unstable angina, Uncontrolled hypertension - Provider Notifications Discussed Care Of Patient With: Arleth Ryan Time Discussed With Above Provider: 22:25 Instructed by Provider To: Admit As Inpatient Discharge - Discharge Plan Condition: Guarded Disposition: ADMITTED TO [facility] documentation as recorded by the Jourdan mcbride Jennifer accurately reflects the service I personally performed and the decisions made by Reanna hernandez Kirk, MD.
[2017-11-05] MEDS ORDERED: Acetaminophen TAB* 325 MG PO PRN (01:43)
[2017-11-05 04:54] LABS: EGFR Non-African American 80.3 (>60)
--- NOTE | 2017-11-05 05:16 | HP ---
CC: Dr. Rascon * HISTORY AND PHYSICAL: DATE OF ADMISSION: 11/04/17 PRIMARY CARE PROVIDER: Dr. Rascon CHIEF COMPLAINT: Chest pain. HISTORY OF PRESENT ILLNESS: Mr. Hudson is a 47-year-old male with a known history of coronary artery disease who had an PR in 2001 as well as stents placed at that time and subsequently, hypertension, type 2 diabetes, and hyperlipidemia who presents to the emergency room with complaints of chest pain. The patient states that over the last 3 days he has been intermittently having chest discomfort. He states that he has "blockages all over" and will have chest discomfort intermittently. He stated it will go away on its own. Between 7 and 7:30 this evening, he was at work, but in the bathroom when he was getting up off the toilet he suddenly felt very lightheaded. He felt flushed. He developed pain in the left side of his chest and then in the left arm. The pain in the left arm with associated lightheadedness made the patient very concerned and therefore he contacted 911 and was brought to the emergency room. The patient states that his vision was also slightly blurry at that time. The patient's discomfort lasted for approximately 5 minutes and resolved on its own. The patient had no associated shortness of breath, diaphoresis, or nausea. Of note the patient has been having diarrhea today. He states his metformin every once in while will cause him to have explosive diarrhea and he feels that that is what is going on currently. PAST MEDICAL HISTORY: 1. Coronary artery disease status post PR in 2001, status post stent placement at that time and subsequently most recent stent placement, he estimates to be 2013 at [facility]. 2. Type 2 diabetes. 3. Hyperlipidemia. 4. Hypertension. PAST SURGICAL HISTORY: None. MEDICATIONS: This list needs to be confirmed with the patient tomorrow morning. 1. Plavix 75 mg p.o. daily. 2. Aspirin 325 mg p.o. daily. 3. Metoprolol tartrate 100 mg p.o. daily. 4. Lipitor 40 mg p.o. daily. 5. Albuterol 2 puffs inhaled q. 4 hours p.r.n. shortness of breath. 6. Metformin 500 mg p.o. daily. ALLERGIES: No known drug allergies. FAMILY HISTORY: Mom is living, she is 75 and relatively healthy. Dad at the age of 65 of brain cancer. SOCIAL HISTORY: The patient is a former smoker. He quit around . He drinks alcohol on occasion. 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 He is . He has 3 children. His is his surrogate decision maker. REVIEW OF SYSTEMS: Complete 11 system review of systems was obtained. Pertinent positives and negatives are as per HPI and otherwise he complains of anorexia for 1 day, abdominal discomfort with associated diarrhea, and bilateral knee discomfort. Otherwise review of systems is negative. PHYSICAL EXAMINATION GENERAL: Patient is a well-developed, middle-aged male, sitting up in the stretcher in no acute distress. VITAL SIGNS: Blood pressure 125/68, pulse 56, respirations 18, temp 98.7, O2 sat 98% on 2 L. HEENT: Pupils are equal and round. Extraocular muscles intact. Oropharynx is clear. Oral mucosa is moist. There is no submandibular, cervical or supraclavicular adenopathy. Thyroid is not enlarged. No thyroid nodules are noted. PULMONARY: Lungs are clear to auscultation bilaterally. CARDIAC: Normal S1, S2. Regular rate and rhythm. I do not appreciate any murmurs. ABDOMEN: Bowel sounds present. Abdomen is soft, nontender, nondistended. MUSCULOSKELETAL: There is no cyanosis or clubbing of the digits. There is full active range of motion of all 4 extremities. NEUROLOGIC: Cranial nerves II through XII are grossly intact. Sensation is intact to light touch throughout. Strength is 5/5 and symmetric in both upper and lower extremities bilaterally. PSYCH: Patient is alert. He is oriented x3. Affect appears appropriate. SKIN: Warm and dry. There are no rashes. DIAGNOSTIC STUDIES/LAB DATA: WBC 6.6, hemoglobin 15.5, hematocrit 46, platelets 208. INR 0.94. D-dimer less than 200. Sodium 138, potassium 4.0, chloride 101, CO2 27, BUN 15, creatinine 0.91, glucose 120, lactic acid 1.9, calcium 11.2, bilirubin 0.5, AST 44, ALT 54, alk phos 85, troponin 0, BNP 20, albumin 4.9. EKG reveals normal sinus rhythm with a right bundle branch block. Chest x-ray reveals mildly prominent cardiac silhouette. Lungs are clear. ASSESSMENT AND PLAN: Mr. Hudson is a 47-year-old male with a known history of coronary artery disease, type 2 diabetes, hypertension and hyperlipidemia who presents to the emergency room with complaints of intermittent chest pain over the last 3 days with the most severe episode occurring on the night of admission. 1. Chest pain. The patient will be admitted and ruled out for an acute coronary syndrome with serial troponins and EKGs. The patient, if ruled out, will undergo an exercise nuclear stress test. The patient states it has been many years since his last stress test. I will request records be obtained from [facility] to get his most recent cardiac catheterization report. If the patient's stress test is abnormal, a cardiology consultation will be requested; if negative, patient can be discharged home. He should likely follow up with cardiology as an outpatient if that is the case. 2. Hypercalcemia. The patient has quite an elevated calcium level of 11.2. He does state that he has been having profuse diarrhea today. Perhaps, he has slightly volume deplete. The patient will be hydrated with normal saline at 150 mL per hour x1 L. A followup basic metabolic panel will be obtained at 0300 when his last troponin will be drawn. If the patient's calcium level is still elevated at that time a workup for hypercalcemia should be undertaken. 3. Type 2 diabetes. The patient will have glucoses checked a.c. and h.s. with a lispro sliding scale to cover for elevated blood sugars. I am going to hold the patient's metformin for now. 4. Hypertension. Upon presentation to the emergency room, the patient was markedly hypertensive. He received nitro paste and labetalol with good improvement in his blood pressure. We will monitor his blood pressure over night on his usual home medication regimen. 5. Hyperlipidemia. We will continue Lipitor 40 mg p.o. daily for now; however , I will add a lipid profile to his 0300 labs. 6. DVT prophylaxis. According to the Adult Thrombosis Prophylaxis Risk Factor Assessment Guide, the patient has a total risk factor score of 2 making him moderate risk. He will be placed on heparin 5000 units q. 12 hours. 5. Code status is full. TIME SPENT: Sixty five minutes was spent admitting this patient. [id number]/[facility] #: [id number] JAYLON
[2017-11-05] MEDS: Insulin LISPRO* 1 UNITS UNIT SUBCUT SCH ×2 (08:40→11:47)
[2017-11-05] MEDS ORDERED: Metoprolol Tartrate TAB* 25 MG PO SCH (09:00)
[2017-11-05] MEDS ORDERED: Clopidogrel TAB* 75 MG PO SCH (09:00)
[2017-11-05] MEDS ORDERED: Heparin VIAL(*) 5000 UNITS/ML VIAL (FIVE THOUSAND) SUBCUT SCH (09:00)
[2017-11-05] MEDS ORDERED: Aspirin EC TAB* 325 MG PO SCH (09:00)
[2017-11-05] MEDS ORDERED: Atorvastatin* 40 MG TAB PO SCH (09:00)
[2017-11-05] MEDS ORDERED: Aspirin Low Dose CHEW TAB* 81 MG PO SCH (09:00)
[2017-11-05 11:48] VITALS: BP 135/80
--- NOTE | 2017-11-05 11:48 | RAD ---
Edited for charges. INDICATION: Chest pain. COMPARISON: Correlation is made with a chest x-ray study from November 04, 2017. Technique: A single day myocardial perfusion stress study was performed. Initially a resting study was performed. The patient was given an intravenous injection of 10.8 mCi of technetium 99m tetrofosmin and and the heart was imaged in multiple projections. The patient returned later in the day and under the direction of Dr. Martins, the patient was exercised to a peak heart rate of 151 beats per minute which was 88% of the maximum predicted heart rate. Subsequently the patient was given intravenous injection of 25.2 mCi of technetium 99m tetrofosmin and the heart was imaged in multiple projections. Images were reconstructed in the axial, sagittal and coronal planes and in a 3- D format. FINDINGS: The left ventricle ejection fraction is calculated to be 52%. There is mild hypokinesis within the septum. Review of the images demonstrates a moderate size defect in the inferolateral wall which appears similar on the post exercise and resting data sets most consistent with an infarct without significant liv-infarct ischemia. No other focal abnormalities are seen. IMPRESSION: MODERATE SIZE INFARCT IN THE INFEROLATERAL WALL WITHOUT EVIDENCE FOR ISCHEMIA. ASSESSMENT: Low risk. Based on imaging criteria from ACC/AHA 2002 Guideline Update for the Management of Patients With Chronic Stable Angina Table 23. Noninvasive Risk Stratification. MTDD
== END 2017-11-05 13:50 | disposition home or self-care (01) ==
LOC: ED 20:55 → MEDTELE 11-05 00:13
PROVIDERS: ADMIT Hospitalist; ATTEND Hospitalist
DX: R07.9 Chest pain, unspecified (principal); E83.52 Hypercalcemia; I25.110 Atherosclerotic heart disease of native coronary artery with unstable angina pectoris; E11.9 Type 2 diabetes mellitus without complications; I10 Essential (primary) hypertension; E78.5 Hyperlipidemia, unspecified; Z79.01 Long term (current) use of anticoagulants; Z79.899 Other long term (current) drug therapy; Z95.5 Presence of coronary angioplasty implant and graft; Z87.891 Personal history of nicotine dependence
CPT/HCPCS: 36415; 71045; 78452; 80048; 80053; 80061; 83036; 83605; 83880; 84484; 85025; 85379; 85610; 85730; 93005; 93017; 96372; 99285; A9270-GY; A9502; G0378; J1644